=== PATIENT | male | born 1995 | race Caucasian/White ===

== ENCOUNTER → 2019-09-18 | Emergency (ER) | payer SELFPAY ==
[~2019-09-18] VITALS: Ht 180.3 cm; Wt 93.0 kg
[~2019-09-18] MED LIST: KETOROLAC TROMETHAMINE 60 MG/2 ML VIAL IM ONE; MORPHINE SULFATE 10 MG/ML VIAL IM ONE; ONDANSETRON 4 MG ODT TAB PO ONE
[2019-09-18 17:48] VITALS: BP_SYST 94
--- NOTE | 2019-09-18 17:50 | NUR ---
BROUGHT BACK TO BED #6 VIA WHEELCHAIR, TRIAGED. REPORT GIVEN TO JOSESITO
--- NOTE | 2019-09-18 17:55 | NUR ---
MD Ivey at bedside
--- NOTE | 2019-09-18 18:11 | NUR ---
RN has mad contact with pt and his GF> pt stated he has been working out doing lunges and has recently been injured with severe muscle soreness. pt is otherwise stable and healthy. pt stated he continued to work out despite being injured a few days prior.
--- NOTE | 2019-09-18 18:30 | NUR ---
Patient given written and verbal discharge instructions and verbalizes understanding. ER MD discussed with patient the results and treatment provided. Patient in stable condition. ID arm band removed. Rx of [place], [place], motrin given. Patient educated on pain management and to follow up with PMD. Pain Scale . Opportunity for questions provided and answered. Medication side effect fact sheet provided.
== END | disposition still patient (30) ==
LOC: SED 17:48
DX: S39.012A Strain of muscle, fascia and tendon of lower back, initial encounter (principal); X50.0XXA Overexertion from strenuous movement or load, initial encounter; Y93.B9 Activity, other involving muscle strengthening exercises; Y92.89 Other specified places as the place of occurrence of the external cause; Y99.8 Other external cause status
CPT/HCPCS: 96372; 99283; J1885; J2270; Q0162